=== PATIENT | male | born 1965 | race African-American/Black ===

== ENCOUNTER 2020-06-02 11:49 | Emergency (ER) | payer OTHER ==
[2020-06-02] MEDS ORDERED: ONDANSETRON 4 MG/2 ML VIAL ONE (12:15)
[2020-06-02] MEDS ORDERED: MORPHINE 4 MG/ML SYR ONE (12:15)
[2020-06-02] MEDS ORDERED: TETANUS & DIPHTHERIA TOX,ADULT 0.5 ML VIAL ONE (12:15)
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
--- NOTE | 2020-06-02 12:41 | RAD REPORT ---
EXAM DESCRIPTION: CT - CTFB CLINICAL HISTORY: Facial pain;Trauma Facial pain and swelling COMPARISON: No comparisons TECHNIQUE: Axial 2 mm thick images of the face were obtained with sagittal and coronal reconstructio n images. All CT scans are performed using dose optimization technique as appropriate and may include automated exposure control or mA/KV adjustment according to patient size. FINDINGS: No acute facial bone fracture is seen.The mandible is intact. The globes and orbital contents are grossly unremarkable.Moderate left-sided periorbital soft tissue swelling.The paranasal sinuses and mastoids are clear. IMPRESSION: Negative for facial bone fracture. Moderate periorbital soft tissue swelling on the left.
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
[2020-06-02 15:06] VITALS: TEMP 98.5
[2020-06-02 15:09] VITALS: O2SAT 100
[2020-06-02 15:10] VITALS: BP 135/87
== END 2020-06-02 15:01 | disposition home or self-care (01) ==
LOC: ER 11:49
DX: S00.03XA Contusion of scalp, initial encounter (principal); S00.12XA Contusion of left eyelid and periocular area, initial encounter; S50.811A Abrasion of right forearm, initial encounter; S00.511A Abrasion of lip, initial encounter; V87.8XXA Person injured in other specified noncollision transport accidents involving motor vehicle (traffic), initial encounter; Z23 Encounter for immunization
CPT/HCPCS: 70450; 71250; 72125; 70486; 76377; 73130; 90471; 90714; 96375; 96374; 99284; J2405